=== PATIENT | female | born 1990 | race Caucasian/White ===

== ENCOUNTER → 2021-12-12 | Outpatient (CLI) | payer BC ==
[2021-12-12 13:05] LABS: HEMOGLOBIN 14.2 gm/dl (12.3-15.3); RED BLOOD COUNT 4.55 M/UL (4.00-5.10); WHITE BLOOD COUNT 8.9 K/UL (4.5-11.0)
[2021-12-12 13:32] LABS: BUN/CREATININE RATIO 12 (0-10)
[2021-12-13 08:17] LABS: FSH 3.1 mIU/mL (.); LUTEINIZING HORMONE(LH) 5.8 mIU/mL (.); PROGESTERONE 4.8 ng/mL (.); PROLACTIN 9.4 ng/mL (4.8-23.3); VITAMIN D, 25-HYDROXY 40.9 ng/mL (30.0-100.0)
[2021-12-16 16:16] LABS: TESTOSTERONE, SERUM 7 ng/dL (8-60)
== END ==
LOC: LAB 12:06
PROVIDERS: Nurse Practitioner
DX: N92.6 Irregular menstruation, unspecified (principal); R51.9 Headache, unspecified
CPT/HCPCS: 36415; 80053; 81001; 82607; 82670; 82672; 82728; 82746; 83001; 83002; 84144; 84146; 84402; 84403; 84439; 84443; 85027